=== PATIENT | female | born 1990 | race Caucasian/White ===

== ENCOUNTER 2017-05-02 09:41 | Outpatient (CLI) | payer OTHER, MEDICAID ==
--- NOTE | 2017-05-02 11:38 | ULT ---
OBSTETRIC ULTRASOUND: Date: 05/02/17 INDICATION: survey. FINDINGS: There is a single live intrauterine gestation in vertex presentation. Placenta is anterior in locatio n without evidence of previa. CONTRERAS appears within normal limits. Cervical length is 4.71 cm. Cardiac a ctivity is noted at 155 beats/minutes. The visualized head, heart, stomach, kidneys, cord insertion, bladder, spine, lips/nose, and three ve ssel cord appear within normal limits. The average gestational age by ultrasound is 19 weeks/3 days with estimated due date of 09/23/17; cli nical age is 18 weeks/4 days with estimated due date of 09/29/17. Estimated weight is 360 gm, +/- 45 gm (0 lbs, 11 oz, +/- 2 oz). The estimated weight perc entile is 96% based on Hadlock criteria. IMPRESSION: 1. Single live intrauterine gestation with size and dates as above. 2. survey appears within normal limits. POS: SUKH
== END 2017-05-02 09:42 | disposition home or self-care (01) ==
LOC: ULT 09:41
PROVIDERS: ATTEND Family Medicine
DX: Z34.92 Encounter for supervision of normal pregnancy, unspecified, second trimester (principal); Z3A.19 19 weeks gestation of pregnancy
CPT/HCPCS: 76805

== ENCOUNTER 2017-09-16 21:33 | Day surgery (SDC) | payer OTHER ==
[2017-09-16 22:05] VITALS: BP 130/76; TEMP 98.4; BMI 36.2
--- NOTE | 2017-09-17 01:44 | PRG ---
DATE OF SERVICE: 09/16/2017 TIME OF SERVICE: 2215 hours. PRESENTING COMPLAINT: Contractions at 38 weeks gestation, previous . HISTORY OF PRESENT ILLNESS: Ms. Enrique is a 27-year-old 3, para 1, AB 1 at 38 weeks today, wh o is scheduled for repeat in 1 week. She reports contractions every 5 to 10 minutes. No r upture of membranes, no bleeding and active fetus. She sees Dr. Ana Patterson at [facility]. JOB HONER HISTORY: in 2009, patient is for scheduled repeat, and she had SAB in 2017. BRYN is 09/30/2017. Blood type O negative, antibody negative, Pap negative, rubella immune, VDRL nonreactiv e, hepatitis B, GC chlamydia negative, group B strep are not on chart. PAST MEDICAL HISTORY: None. PAST SURGICAL HISTORY: . ALLERGIES: Denies. MEDICATIONS: vitamins. SOCIAL HISTORY: Denies tobacco, alcohol, or IV drug use. FAMILY HISTORY: Noncontributory. REVIEW OF SYSTEMS: Noncontributory. PHYSICAL EXAMINATION: GENERAL: female, resting comfortably. VITAL SIGNS: Temperature 97.8, respirations 18, pulse 82, blood pressure 130/70. HEENT: Within normal limits. LUNGS: Clear to auscultation bilaterally. HEART: Regular rate and rhythm. ABDOMEN: Soft, nontender. Occasional uterine irritability. Fundal height 37. FHTs 130s to 140s. Vulva without lesions. Vagina without discharge. Cervix is closed, long and high on exam. EXTREMITIES: Without clubbing, cyanosis, or edema. heart rate tracing reveals category 1 heart rate tracing with only occasional uterine con tractions. IMPRESSION: Uterine irritability, no evidence of active labor 38 weeks, prior section x1. PLAN: Discharge home. ER precautions. Follow up with Dr. Patterson this week.
== END 2017-09-16 22:25 | disposition home or self-care (01) ==
LOC: L&D/OP 21:33
PROVIDERS: ATTEND Family Medicine
DX: O47.1 False labor at or after 37 completed weeks of gestation (principal); Z3A.38 38 weeks gestation of pregnancy; Z79.899 Other long term (current) drug therapy; Z98.891 History of uterine scar from previous surgery
CPT/HCPCS: 99282

== ENCOUNTER 2017-09-23 05:16 | Inpatient (IN) | payer OTHER ==
[2017-09-23 06:02] VITALS: BMI 36.6
[2017-09-23] MEDS ORDERED: Promethazine HCl 25 MG/ML VIAL IM PRN (06:02)
[2017-09-23] MEDS ORDERED: Bicitra 30 ML UDCUP PO SCH (06:02)
[2017-09-23] MEDS ORDERED: CEFAZOLIN/Water 2 GM/20 ML SYRINGE SLOW IVP SCH (06:02)
[2017-09-23] MEDS ORDERED: Ondansetron HCl/PF 4 MG/2 ML Vial IVP PRN ×2 (06:02→07:30)
[2017-09-23] MEDS: Lactated Ringer's 1,000 ML IV SCH ×3 (06:20→09:52)
[2017-09-23 06:54] LABS: Hemoglobin 12.1 g/dL (12.0-16.0); Mean Corpuscular HGB CONC 35.6 g/dL (32.0-36.0); Mean Corpuscular Hemoglobin 33.1 pg (27.0-31.0); Mean Platelet Volume 11.1 fL (7.4-10.4); Platelet Count 90 thou/uL (130-400); RBC Distribution Width 11.8 % (11.5-14.5); Red Blood Cell (RBC) Count 3.65 mill/uL (4.20-5.40); White Blood Cell (WBC) Count 8.7 thou/uL (4.8-10.8)
[2017-09-23 07:21] LABS: HBSAg Index 0.17 S/CO (0-0.99); Hep B Surf Ag Non-Reactive S/CO (NonReactive); Syphilis Antibody Nonreactive (Nonreactive); Syphilis Antibody Index 0.03 S/CO (<1.00 Non-Reactive)
[2017-09-23] MEDS ORDERED: Morphine Sulfate 2 MG/ML SYRINGE SLOW IVP PRN (07:29)
[2017-09-23] MEDS ORDERED: Communication Order-Pharmacy FS SCH (07:30)
[2017-09-23] MEDS ORDERED: Naloxone HCl 0.4 mg/ml Vial IVP PRN ×2 (07:30)
[2017-09-23] MEDS ORDERED: Eucerin (Mineral Oil/Petrolatum,White) 30 gm Jar TOP PRN (07:30)
[2017-09-23] MEDS ORDERED: Morphine PF 1 MG/ML SYR ONE (07:43)
[2017-09-23] MEDS ORDERED: Oxytocin 10 UNITS/ML VIAL ONE ×2 (07:43→08:12)
[2017-09-23] MEDS ORDERED: Bupivacaine 0.75% W/DEXTROSE 8.25% 2 ML AMP ONE (07:44)
[2017-09-23] MEDS ORDERED: Lidocaine 1% PF 5 ML VIAL ONE (07:44)
--- NOTE | 2017-09-23 09:32 | OP ---
DATE OF PROCEDURE: 09/23/2017 PREOPERATIVE DIAGNOSIS: Term intrauterine with previous section. POSTOPERATIVE DIAGNOSIS: Term intrauterine with previous section, status post del humberto. PROCEDURE: Repeat low transverse section. SURGEON: Ana Patterson M.D. MEAL PACKER: Rcihard Patterson M.D. ANESTHESIA: Spinal anesthetic. COMPLICATIONS: None. PROCEDURE IN DETAIL: After adequate spinal anesthetic, the patient was placed in supine position. A wedge was placed under her right flank. The Rea catheter was placed under sterile technique. The abdomen was prepped and draped in usual sterile technique. A Pfannenstiel incision was made from th rough the old scar. Subcutaneous tissue opened with sharp dissection. Fascia opened with sharp diss ection. Peritoneum opened with sharp and blunt dissection. It was noted that the abdomen was filled with a gravid uterus. An Valentin O retractor was placed and a low transverse incision was made on th e uterus. Membranes were ruptured. Clear fluid was encountered. A viable male infant was delivered from vertex presentation without difficulty. Noted cord around neck x1. The nose and mouth were bu lb suctioned. Remainder of infant delivered without difficulty. Infant breathed and cried spontaneo usly. After approximately 1 minute, the cord was clamped and cut and infant handed to care of neonat ology team. Cord blood was obtained. Placenta delivered manually, appeared intact. The uterus was wiped clean with a dry lap, and hysterotomy edges were grasped with ring forceps. An additional ring forceps was used to dilate the cervix and this ring forcep was taken external to the sterile field. Hysterotomy was then closed in continuous fashion using #1 Monocryl. Hemostasis was adequate. Ther e were no bleeders from the hysterotomy edges. Peritoneum was then closed in continuous fashion usin g 2-0 chromic. Fascia was then closed in continuous fashion using 0 Vicryl. Sponge and instrument c ounts were correct. There were no bleeders in the subcutaneous tissue and skin was closed using stap les. The patient did go over in recovery room in good condition. Noted the baby is a viable male in jada, weight 8 pounds 6 ounces. Apgars 8 at 1 minute, 9 at 5 minutes in level 1 nursery.
[2017-09-23] MEDS ORDERED: LR / Pitocin 40 units/1000 ml 1,000 ML ONE (09:36)
[2017-09-23] MEDS ORDERED: Ketorolac Tromethamine 30 MG/ML VIAL ONE (09:43)
[2017-09-23] MEDS: Ketorolac Tromethamine 30 MG/ML VIAL IVP PRN (09:44)
[2017-09-23] MEDS ORDERED: Morphine 4 MG/ML VIAL ONE (10:27)
[2017-09-24] MEDS ORDERED: Sodium Chloride 0.9% 10 ML ONE ×2 (00:01→04:46)
[2017-09-24] MEDS: Ketorolac Tromethamine 30 MG/ML VIAL IVP PRN ×2 (00:04→05:38)
[2017-09-24] MEDS: Lactated Ringer's 1,000 ML IV SCH ×3 (01:25→14:35)
[2017-09-24] MEDS ORDERED: diphenhydrAMINE 25 MG CAP PO PRN (01:54)
[2017-09-24] MEDS: Naloxone HCl 0.4 mg/ml Vial IV PRN ×2 (04:59→05:39)
[2017-09-24] MEDS: Ibuprofen 800 MG TAB PO SCH (13:08)
[2017-09-24] MEDS: traMADol HCl 50 MG TAB PO PRN ×2 (13:09→19:49)
[2017-09-25] MEDS: Ibuprofen 800 MG TAB PO SCH ×5 (00:39→21:58)
[2017-09-25] MEDS: traMADol HCl 50 MG TAB PO PRN ×2 (06:58→14:05)
[2017-09-25] MEDS: Lactated Ringer's 1,000 ML IV SCH ×3 (06:59→21:59)
[2017-09-25] MEDS ORDERED: Bisacodyl 10 MG SUPP PR PRN (08:38)
[2017-09-25] MEDS: Simethicone Chewable 80 MG TAB PO PRN ×2 (08:58→17:57)
[2017-09-25] MEDS: Docusate Calcium (SURFAK) 240 MG CAP PO SCH ×2 (08:58→21:58)
[2017-09-26] MEDS: Ibuprofen 800 MG TAB PO SCH (05:54)
[2017-09-26] MEDS: Lactated Ringer's 1,000 ML IV SCH (06:05)
[2017-09-26 07:52] VITALS: BP 133/68; TEMP 98.8
[2017-09-26] MEDS: traMADol HCl 50 MG TAB PO PRN (09:37)
[2017-09-26] MEDS: Docusate Calcium (SURFAK) 240 MG CAP PO SCH (09:37)
== END 2017-09-26 13:15 | disposition home or self-care (01) | DRG 766 ==
LOC: L&D 05:16 → 3SW 11:38 → 3SE 09-24 06:53
PROVIDERS: ADMIT Family Medicine; ATTEND Family Medicine
PROC: 10D00Z1 Extraction of Products of Conception, Low, Open Approach (ICD-10-PCS; principal; 2017-09-23)
DX: O34.211 Maternal care for low transverse scar from previous cesarean delivery (principal); N85.8 Other specified noninflammatory disorders of uterus; Z3A.39 39 weeks gestation of pregnancy; Z37.0 Single live birth; Z87.891 Personal history of nicotine dependence
CPT/HCPCS: 51702; 85027; 86780; 86850; 86900; 86901; 87340; A4216; J1885; J2001; J2270; J2274; J2310; J2405; J2590; J3490

== ENCOUNTER 2017-11-08 19:01 | Emergency (ER) | payer OTHER ==
[2017-11-08] MEDS ORDERED: Ibuprofen 200 MG TAB ONE (20:40)
== END 2017-11-08 20:28 | disposition home or self-care (01) ==
LOC: ERS 19:01
DX: S16.1XXA Strain of muscle, fascia and tendon at neck level, initial encounter (principal); V49.9XXA Car occupant (driver) (passenger) injured in unspecified traffic accident, initial encounter
CPT/HCPCS: 99283

== ENCOUNTER 2021-05-23 12:49 | Emergency (ER) | payer OTHER ==
[2021-05-24 10:48] LABS: SARS-CoV-2 PCR by NAA Not Detected (NotDetected)
== END 2021-05-23 13:42 | disposition home or self-care (01) ==
LOC: ERS 12:49
DX: J04.0 Acute laryngitis (principal); Z20.822 Contact with and (suspected) exposure to COVID-19
CPT/HCPCS: 99284; U0003; U0005